=== PATIENT | female | born 1970 | race Caucasian/White ===

== ENCOUNTER 2019-04-17 07:08 | Day surgery (SDC) | payer OTHER ==
[~2019-04-17] VITALS: Ht 162.6 cm; Wt 920.0 kg
[2019-04-17] MEDS ORDERED: PROG100 (07:50)
[2019-04-17] MEDS ORDERED: BRETHINE (07:51)
[2019-04-17] MEDS ORDERED: MELO7.5 (07:51)
--- NOTE | 2019-04-17 07:55 | NUR ---
04/17/19 0755 Jessica Burgos 1 MISSED IV IN RW BY REKHA 1 GOOD IV IN RAC BY REKHA PT TOW
== END 2019-04-17 09:24 | disposition home or self-care (01) ==
LOC: ORSCSDS 07:08
PROVIDERS: Internal Medicine Gastroenterology
PROC: 0DBB8ZX Excision of Ileum, Via Natural or Artificial Opening Endoscopic, Diagnostic (ICD-10-PCS; principal; 2019-04-17 08:30)
PROC: 0DBN8ZX Excision of Sigmoid Colon, Via Natural or Artificial Opening Endoscopic, Diagnostic (ICD-10-PCS; principal; 2019-04-17 08:30)
DX: Z12.11 Encounter for screening for malignant neoplasm of colon (principal); Z80.0 Family history of malignant neoplasm of digestive organs; K63.5 Polyp of colon; K64.4 Residual hemorrhoidal skin tags; K64.8 Other hemorrhoids; K52.9 Noninfective gastroenteritis and colitis, unspecified; F41.8 Other specified anxiety disorders; J45.909 Unspecified asthma, uncomplicated; E66.9 Obesity, unspecified; Z68.34 Body mass index [BMI] 34.0-34.9, adult; Z79.899 Other long term (current) drug therapy
CPT/HCPCS: 88305; J0330; J0461; J2405; J2704; J7120

== ENCOUNTER 2025-03-14 11:40 | Day surgery (SDC) | payer OTHER, BC ==
[~2025-03-14] VITALS: Ht 162.6 cm; Wt 91.2 kg
[~2025-03-14 11:40] MED LIST: BRETHINE; FLUTICASONE PR50 MCG IH; GABA300 PO; MELO7.5; PROG100; ROSUVASTATIN CA20 MG
[2025-03-14] MEDS ORDERED: CeFAZolin Sodium 2,000 MG VIAL ONE (11:58)
[2025-03-14] MEDS ORDERED: ZEPBOUND5 MG/0.5 M SQ (12:14)
[2025-03-14] MEDS ORDERED: Midazolam HCl 1MG / ML 2ML Vial ONE (12:45)
[2025-03-14] MEDS ORDERED: FentaNYL Citrate 50 MCG/ML 2 ML Injection ONE (12:45)
[2025-03-14] MEDS ORDERED: Lidocaine HCl 2% 10 ML SDA ONE (12:54)
[2025-03-14] MEDS ORDERED: Bupivacaine 0.5% W/EPI 1:200000 SDV 30 ML Vial ONE (12:54)
[2025-03-14 14:06] VITALS: BP 110/61
[2025-03-14] MEDS ORDERED: HYDROcodone 5-APAP 325 TAB ONE (14:28)
[2025-03-14] MEDS ORDERED: Ondansetron HCl 2 MG / ML 2ML Vial ONE (14:57)
--- NOTE | 2025-03-14 15:19 | NUR ---
03/14/25 1519 Reggie Sauceda PT REPORTED TOLERABLE 2/10 PAIN UPON D/C. FLACC 0/10. SHE REPORTED NAUSEA IMMEDIATELY PRIO TO D/C AND WAS MEDICATED WITH 4MG IV ZOFRAN. NAUSEA RESOLVED AFTER ZOFRAN ADMINISTRATION, AND PT EXPRESSED READINESS TO RETURN HOME.
== END 2025-03-14 15:25 | disposition home or self-care (01) ==
LOC: ORSCSDS 11:40
PROVIDERS: Podiatrist Foot & Ankle Surgery
PROC: 0QBQ0ZZ Excision of Right Toe Phalanx, Open Approach (ICD-10-PCS; principal; 2025-03-14 13:00)
PROC: 0QSN04Z Reposition Right Metatarsal with Internal Fixation Device, Open Approach (ICD-10-PCS; principal; 2025-03-14 13:00)
PROC: 0QBN0ZZ Excision of Right Metatarsal, Open Approach (ICD-10-PCS; principal; 2025-03-14 13:00)
DX: M20.5X1 Other deformities of toe(s) (acquired), right foot (principal); W01.0XXA Fall on same level from slipping, tripping and stumbling without subsequent striking against object, initial encounter; Z79.899 Other long term (current) drug therapy; E78.5 Hyperlipidemia, unspecified; J45.909 Unspecified asthma, uncomplicated; E66.9 Obesity, unspecified; Z68.34 Body mass index [BMI] 34.0-34.9, adult
CPT/HCPCS: A6253; A9270; J0690; J2003; J2250; J2405; J2704; J3010; J7120